=== PATIENT | female | born 1990 | race American Indian/Alaskan Native ===

== ENCOUNTER 2017-07-17 11:56 | Emergency (ER) | payer SELFPAY | END 2017-07-17 15:24 | disposition left against medical advice (07) | LOC: ED 11:56 | DX: M79.605 Pain in left leg (principal) ==

== ENCOUNTER 2017-11-25 12:36 | Emergency (ER) | payer BC ==
--- NOTE | 2017-11-25 13:21 | Emergency Department Report ---
Minor Respiratory - HPI Chief Complaint: Upper Respiratory Infection Stated Complaint: SOB/COUGH/CONGESTION Time Seen by Provider: 11/25/17 13:05 Duration: 3 weeks Pain Location: Chest Severity: mild Minor Respiratory: Yes Able to Tolerate Fluids, Yes Cough, Yes Chest Pain ( chest tightness with cough), No Rhinorrhea, No Sore Throat, No Ear Pain, No Sick Contacts, No Hemoptysis, No Shortness of Breath, No Fever Other History: This is a 27-year-old -[place] female presents with a cough and congestion for 3 weeks. Patient has a history of asthma and seizures. She is a current daily smoker. She is noncompliant with medication. Patient reports stopped taking Qvar and albuterol one month ago. Patient reports initially thinking she had a upper respiratory infection and it start of symptoms she was taking [id number] cold and flu medication. Patient reports symptoms improved for about 1 week if she cannot get rid of the cough or congestion. Patient reports cough is productive with clear mucus. Denies shortness of breath, nausea or vomiting, fever, body aches, sinus pressure, and headache. ED Review of Systems ROS: Stated complaint: SOB/COUGH/CONGESTION Other details as noted in HPI Constitutional: denies: chills, fever ENT: congestion. denies: ear pain, throat pain Respiratory: cough. denies: shortness of breath, wheezing Cardiovascular: denies: chest pain, palpitations Gastrointestinal: denies: abdominal pain, nausea, vomiting, diarrhea Neurological: denies: headache, weakness, paresthesias Psychiatric: denies: anxiety, depression ED Past Medical Hx - Past Medical History Previous Medical History?: Yes Hx Seizures: Yes Hx Asthma: Yes Additional medical history: narcolepsy, cataplexy, hypertonia - Surgical History Past Surgical History?: Yes Additional Surgical History: musa in left leg (Mar 2017) - Social History Smoking Status: Current Some Day Smoker Substance Use Type: None - Medications Home Medications: Home Medications Medication Instructions Recorded Confirmed Last Taken Type Albuterol Sulfate [Albuterol 0.63%] 90 mcg IH TID PRN 11/20/13 11/20/13 08:00 History Modafinil [Provigil] 100 mg PO QAM 11/20/13 11/20/13 05/12/13 08:00 History Benzonatate 200 mg PO TID PRN #30 capsule 11/25/17 Unknown Rx Fluticasone [Flonase] 1 spray NS QDAY #1 bottle 11/25/17 Unknown Rx guaiFENesin/DEXTROMETHORPHAN [Kro 1 each PO BID #14 tab.er.12h 11/25/17 Unknown Rx Mucus Dm 600-30 mg Tablet] Minor Respiratory Exam - Exam General: Vital signs noted. No distress. Alert and acting appropriately. HEENT: Yes Pharyngeal Erythema, Yes Moist Mucous Membranes, Yes Rhinorrhea ( turbinate is mildly congested with clear discharge), No Pharyngeal Exudates, No Conjuctival Injection, No Frontal Tenderness, No Maxillary Tenderness Ear: Neither TM Bulge, Neither TM Erythema, Neither EAC Pain, Neither EAC Discharge Neck: Yes Supple, No Adenopathy Lungs: Yes Good Air Exchange, Yes Cough, No Wheezes, No Ronchi, No Stridor, No Labored Respirations, No Retractions, No Use of Accessory Muscles, No Other Abnormal Lung Sounds Heart: Yes Regular, No Murmur Abdomen: Yes Normal Bowel Sounds, No Tenderness, No Peritoneal Signs Skin: No Rash, No Edema Neurologic: Alert and oriented, no deficits. Musculoskeletal: Unremarkable. ED Course Vital Signs 11/25/17 12:38 Temperature 97.5 F L Pulse Rate 86 Respiratory 18 Rate Blood Pressure 109/75 O2 Sat by Pulse 100 Oximetry ED Medical Decision Making - Medical Decision Making 27 y.o. female that presents with cough and congestion for 3 weeks. History of asthma, seizures, and current daily smoker. Patient examined by me and stable. No distress noted. Vitals normal. Chest xray ordered, patient refused. Instructed to restart Qvar and albuterol inhaler. Start Flonase, benzonatate, and guaifenesin DM for upper respiratory infection and post bilateral cough. Discharged home stable. Encouraged to do supportive care for URI. Follow up with Primary Care Provider in 2-3 days. Critical care attestation.: If time is entered above; I have spent that time in minutes in the direct care of this critically ill patient, excluding procedure time. ED Disposition Clinical Impression: Post-viral cough syndrome, Upper respiratory infection, viral Disposition: DC- TO HOME OR SELFCARE Is pt being admited?: No Does the pt Need Aspirin: No Condition: Stable Instructions: Cold Symptoms (ED), Upper Respiratory Infection (ED) Additional Instructions: Increase fluid intake and rest. Wash hands frequently. Continue taking Tylenol or ibuprofen to control fever. F/U with Primary Care Provider in 2-3 days. Return to ER if fever, SOB, or difficulty breathing after 48 hours of supportive care. Prescriptions: Benzonatate 200 mg PO TID PRN #30 capsule PRN Reason: Cough Fluticasone [Flonase] 1 spray NS QDAY #1 bottle guaiFENesin/DEXTROMETHORPHAN [Kro Mucus Dm 600-30 mg Tablet] 1 each PO BID #14 tab.er.12h Referrals: [facility] [Outside] - 3-5 Days [facility] [Outside] - 3-5 Days [facility] [Outside] - 3-5 Days Time of Disposition: 13:55 Print Language: MOLDOVAN
[2017-11-25 14:35] VITALS: BP 118/66
== END 2017-11-25 14:35 | disposition home or self-care (01) ==
LOC: ED 12:36
DX: J06.9 Acute upper respiratory infection, unspecified (principal); G93.3 Postviral and related fatigue syndromes; F17.200 Nicotine dependence, unspecified, uncomplicated
CPT/HCPCS: 99282

== ENCOUNTER 2018-09-10 14:26 | Emergency (ER) | payer BC, OTHER ==
--- NOTE | 2018-09-10 15:04 | Emergency Department Report ---
Blank Doc - Documentation Documentation: This is a 28-year-old female that presents with right great toe pain. This initial assessment/diagnostic orders/clinical plan/treatment(s) is/are subject to change based on patient's health status, clinical progression and re- assessment by fellow clinical providers in the ED. Further treatment and workup at subsequent clinical providers discretion. Patient/guardians urged not to elope from the ED as their condition may be serious if not clinically assessed and managed. Initial orders include: 1- Patient sent to [facility] for further evaluation and treatment 2- xray
[2018-09-10 15:07] VITALS: BP 112/64
--- NOTE | 2018-09-10 15:38 | XRay Report ---
PROCEDURE: XR TOE(S) 2+V RT TECHNIQUE: Right great toe, 4 views HISTORY: right toe pain COMPARISON: None FINDINGS: There is no acute fracture. There is no dislocation. There is no acute bony abnormality. IMPRESSION: There is no acute abnormality identified. This document is electronically signed by Henny Sanchez MD., September 10 2018 03:35:44 PM ET
[2018-09-10] MEDS ORDERED: IBUPROFEN PO ONE (16:06)
[2018-09-10] MEDS ORDERED: ANCEF IM ONE (16:06)
--- NOTE | 2018-09-10 16:12 | Emergency Department Report ---
ED Lower Extremity HPI - General Chief Complaint: Extremity Injury, Lower Stated Complaint: RT TOE INJURY/PAIN Time Seen by Provider: 09/10/18 15:03 Source: patient Mode of arrival: Ambulatory Limitations: No Limitations - History of Present Illness Initial Comments: She is a 28-year-old female who comes to the ER today with great toe pain on her right foot. She dropped a large plastic wrap on the toe 3 days ago. Patient is ambulatory but with a limp. The bed itself is intact but the distal portion of the toenail is loose. She states that it has been draining clear drainage Complaint: other -: Sudden Injury: Toes: Right Type of Injury: blunt Place: home Severity: moderate Context: direct blow Treatments Prior to Arrival: NSAIDS - Related Data Home Medications Medication Instructions Recorded Confirmed Last Taken Albuterol Sulfate [Albuterol 0.63%] 90 mcg IH TID PRN 11/20/13 11/20/13 09/11/13 08:00 Modafinil [Provigil] 100 mg PO QAM 11/20/13 11/20/13 05/12/13 08:00 Allergies Allergy/AdvReac Type Severity Reaction Status Date / Time Penicillins Allergy Hives Verified 11/20/13 14:20 sulfamethoxazole Allergy Hives Verified 11/20/13 14:20 [From Bactrim] trimethoprim [From Bactrim] Allergy Hives Verified 11/20/13 14:20 ED Review of Systems ROS: Stated complaint: RT TOE INJURY/PAIN Other details as noted in HPI Comment: All other systems reviewed and negative Constitutional: denies: see HPI Eyes: denies: as per HPI ENT: denies: ear pain Respiratory: denies: see HPI Cardiovascular: denies: chest pain Endocrine: denies: see HPI Gastrointestinal: denies: nausea Genitourinary: denies: urgency Musculoskeletal: as per HPI Skin: as per HPI. denies: rash, lesions Neurological: denies: weakness Psychiatric: denies: anxiety Hematological/Lymphatic: denies: easy bleeding ED Past Medical Hx - Past Medical History Previous Medical History?: Yes Hx Seizures: Yes Hx Asthma: Yes Additional medical history: narcolepsy, cataplexy, hypertonia - Surgical History Past Surgical History?: Yes Additional Surgical History: musa in left leg (Mar 2017) - Family History Family history: no significant - Social History Smoking Status: Never Smoker Substance Use Type: None - Medications Home Medications: Home Medications Medication Instructions Recorded Confirmed Last Taken Type Albuterol Sulfate [Albuterol 0.63%] 90 mcg IH TID PRN 11/20/13 11/20/13 09/11/13 08:00 History Modafinil [Provigil] 100 mg PO QAM 11/20/13 11/20/13 05/12/13 08:00 History ED Physical Exam - General Limitations: No Limitations General appearance: alert - Head Head exam: Present: atraumatic - Eye Eye exam: Present: normal appearance - ENT ENT exam: Present: normal exam - Neck Neck exam: Present: normal inspection - Respiratory Respiratory exam: Present: normal lung sounds bilaterally - Cardiovascular Cardiovascular Exam: Present: regular rate - GI/Abdominal GI/Abdominal exam: Present: soft - Rectal Rectal exam: Present: deferred - Expanded Lower Extremity Exam Right Ankle exam: Present: normal inspection Foot/Toe exam: Present: nail avulsion. Absent: subungual hematoma Neuro vascular tendon exam: Present: no vascular compromise Gait: Positive: observed and limited by pain ED Course Vital Signs 09/10/18 15:04 Temperature 98.2 F Pulse Rate 70 Respiratory 18 Rate Blood Pressure 112/64 O2 Sat by Pulse 99 Oximetry ED Lower Extremity MDM - Radiology Data Radiology results: report reviewed, image reviewed - Medical Decision Making THERE IS NO LACERATION NO FRACTURE ON XRAY THE NAIL IS FIRMLY ATTACHED AT THE BED I'M CONCERNED IF I DISRUPT THE BED IT WILL BECOME INFECTED OR THE NAIL WILL NOT GROW BACK. ORTHO SHOE CONSERVATIVE HOME MANAGEMENT TO ALLOW THE NAIL TO FALL OFF ON ITS OWN Vital Signs 09/10/18 15:04 Temperature 98.2 F Pulse Rate 70 Respiratory 18 Rate Blood Pressure 112/64 O2 Sat by Pulse 99 Oximetry - Differential Diagnosis RO FRACTURE OF TOE Critical care attestation.: If time is entered above; I have spent that time in minutes in the direct care of this critically ill patient, excluding procedure time. ED Disposition Clinical Impression: Nail avulsion of toe, Contusion Disposition: - TO HOME OR SELFCARE Is pt being admited?: No Does the pt Need Aspirin: No Condition: Stable Instructions: Toenail/Fingernail Removal (ED) Additional Instructions: ORTHO SHOE UNTIL YOU CAN TOLERATE SHOE THE NAIL WILL FALL OFF ON ITS OWN. US DISRUPTING THE BED OF THE NAIL CAN CAUSE FURTHER DAMAGE. MOTRIN OR TYLENOL FOR PAIN A WORD PROCESSOR TECHNICIAN OR FOOT DOCTOR WOULD BE APPROPRIATE IF PROBLEM PERSISTS ICE AND ELEVATE FOR PAIN Referrals: CHERYLE CANADA MD [Primary Care Provider] - 3-5 Days Time of Disposition: 16:10
[2018-09-10] MEDS ORDERED: XYLOCAINE 1% MPF 5 mL INFILTRATI ONE (16:17)
== END 2018-09-10 16:32 | disposition home or self-care (01) ==
LOC: ED 14:26
DX: S91.201A Unspecified open wound of right great toe with damage to nail, initial encounter (principal); S90.111A Contusion of right great toe without damage to nail, initial encounter; J45.909 Unspecified asthma, uncomplicated; Z88.0 Allergy status to penicillin; Z88.2 Allergy status to sulfonamides; W22.8XXA Striking against or struck by other objects, initial encounter; Y93.89 Activity, other specified; Y92.89 Other specified places as the place of occurrence of the external cause; Y99.8 Other external cause status
CPT/HCPCS: 73660; 96372; 99283; J0690